=== PATIENT | female | born 1975 | race Caucasian/White ===

== ENCOUNTER 2018-01-12 22:35 | Emergency (ER) | payer MEDICAID ==
[2018-01-12 22:35] VITALS: BMI 27.3
--- NOTE | 2018-01-12 23:24 | ED PDOC ---
HPI: Psych/Substance Abuse Time Seen by Provider: 01/12/18 22:57 Chief Complaint (Nursing): Alcohol Ingestion History Per: Patient History/Exam Limitations: no limitations Modifying Factor(s): None Additional Complaint(s): Unknown PMHx presenting with ETOH abuse, according to EMS, patient was found wandering streets, intoxicated appearing. Patient admits to drinking, denies drug abuse or injury. Highly intoxicated, limiting history. Past Medical History Reviewed: Unable To Obtain Vital Signs: Last Vital Signs Temp 98.1 F 01/12/18 22:36 Pulse 94 H 01/12/18 22:36 Resp 17 01/12/18 22:36 BP 113/75 01/12/18 22:36 Pulse Ox 98 01/12/18 22:36 - Medical History PMH: Anemia, Anxiety, Depression - Family History Family History: States: Unknown Family Hx - Immunization History Hx Tetanus Toxoid Vaccination: No Hx Influenza Vaccination: No Hx Pneumococcal Vaccination: No - Home Medications Home Medications: Ambulatory Orders Medication Instructions Recorded No Known Home Med 08/08/16 - Allergies Allergies/Adverse Reactions: Allergies Allergy/AdvReac Type Severity Reaction Status Date / Time No Known Allergies Allergy Verified 08/08/16 11:07 Review of Systems Review Of Systems: ROS cannot be obtained secondary to pt's inabilty to answer questions. Physical Exam - Reviewed Nursing Documentation Reviewed: Yes Vital Signs Reviewed: Yes - Physical Exam Appears: Positive for: Non-toxic, No Acute Distress. Negative for: Well ( Intoxicated) Head Exam: Positive for: ATRAUMATIC, NORMAL INSPECTION, NORMOCEPHALIC Skin: Positive for: Normal Color, Warm, DRY Eye Exam: Positive for: EOMI, PERRL. Negative for: Normal appearance (Glazed appearance) ENT: Positive for: Normal ENT Inspection Neck: Positive for: Normal, Painless ROM Cardiovascular/Chest: Positive for: Regular Rate, Rhythm Respiratory: Positive for: CNT, Normal Breath Sounds Gastrointestinal/Abdominal: Positive for: Normal Exam, Soft Back: Positive for: Normal Inspection Extremity: Positive for: Normal ROM Neurologic/Psych: Positive for: Alert, software development specialist II-XII, Gait (Unsteady). Negative for: Oriented (Intoxicated), Motor/Sensory Deficits - ECG O2 Sat by Pulse Oximetry: 98 Pulse Ox Interpretation: Normal Medical Decision Making Medical Decision MakinPM A/P: Patient presenting with intoxication -patient too intoxicate for safe discharge at this time -will observe till sober 4AM -patient is clinically sober at this time -wlaking with steady gait -A&O x 3, no SI/hI -will d/c home Disposition - Clinical Impression Clinical Impression: Alcohol abuse - Patient ED Disposition Is Patient to be Admitted: No - Disposition Referrals: Alcoholics Anonymous [Outside] Disposition: Routine/Home Disposition Time: 03:51 Condition: STABLE Instructions: Alcohol Abuse and Alcoholism (DC) Forms: MDCapsule (H[place]ian)
[2018-01-13 04:13] VITALS: BP 119/70; PULSE 92; RESP 13; TEMP 98.2; O2SAT 100
== END 2018-01-13 04:13 | disposition home or self-care (01) ==
LOC: H.ER 22:35
DX: F10.10 Alcohol abuse, uncomplicated (principal); F32.9 Major depressive disorder, single episode, unspecified; F41.9 Anxiety disorder, unspecified